=== PATIENT | female | born 1960 | race Caucasian/White ===

== ENCOUNTER 2020-07-27 18:30 | Inpatient (IN) | payer MEDICARE, MEDICAID, SELFPAY ==
[2020-07-27 19:24] VITALS: BMI 33.6
[2020-07-27 19:33] VITALS: BP 130/75; PULSE 98; RESP 18; TEMP 36.8; O2SAT 98
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
[2020-07-27] MEDS: traZODone HCL 100 MG TABLET PO (22:30)
[2020-07-27] MEDS: Gabapentin 600 MG TABLET PO (22:30)
[2020-07-27] MEDS: clonazePAM 1 MG TABLET PO (22:31)
[2020-07-27] MEDS: Acetaminophen 325 MG TABLET 650 MG PO (22:37)
[2020-07-27 22:42] VITALS: BP 115/64; PULSE 99; TEMP 36.6; O2SAT 98
[2020-07-28 06:00] VITALS: BP 122/57; PULSE 97; RESP 20; TEMP 36.6; O2SAT 94
[2020-07-28 07:15] LABS: MANUAL DIFF FLAG NO
[2020-07-28 07:23] LABS: Basophils Percent Auto 0.4 % (0-2); Eosinophils Absolute Auto 0.1 X10*3/uL (0.0-0.4); Eosinophils Percent Auto 1.1 % (0-4); Hematocrit 44.6 % (37-47); Imm Gran Abs Auto 0.05 X10*3/uL (0.00-0.03); Imm Gran Pct Auto 0.5 % (0.0-0.4); Lymphocytes Absolute Auto 1.8 X10*3/uL (1.2-4.9); Lymphocytes Percent Auto 16.8 % (20-40); Mean Corpuscular HGB Conc 33.6 g/dl (31.0-35.0); Mean Corpuscular Hemoglobin 31.6 pg (27.0-33.0); Mean Corpuscular Volume 94.1 fL (80-98); Mean Platelet Volume 8.8 fL (9.4-12.3); Monocytes Absolute Auto 0.9 X10*3/uL (0.1-1.2); Monocytes Percent Auto 8.6 % (2-11); Neutrophils Absolute Auto 7.6 X10*3/uL (2.0-8.3); Neutrophils Percent Auto 72.6 % (45-73); Platelet Count 294 X10*3/uL (160-400); Red Blood Count 4.74 X10*6/uL (4.20-5.50); Red Cell Distribution Width 13.8 % (11.0-16.0); White Blood Count 10.5 X10*3/uL (4.8-10.8)
[2020-07-28 07:53] LABS: Alanine Aminotransferase 17 U/L (0-31); Albumin Level 3.9 g/dL (3.5-5.0); Alkaline Phosphatase 79 U/L (39-117); Anion Gap 12 (12-20); Aspartate Amino Transferase 17 U/L (5-31); Bilirubin Total 0.4 mg/dL (0.0-1.0); Blood Urea Nitrogen 14 mg/dL (9-16); Calcium 8.9 mg/dL (8.4-10.2); Carbon Dioxide 30 mmol/L (22-29); Chloride 102 mmol/L (96-108); Cholesterol 234 mg/dL; Creatinine Clr Calc Pharmacy 88.9; Estimated Glomerular Filt Rate > 60; Glucose Fasting 118 mg/dL (60-99); HDL Cholesterol 25 mg/dL; LDL Cholesterol Calculated 148 mg/dl; Potassium 3.4 mmol/L (3.3-5.1); Sodium 141 mmol/L (135-145); Total Protein 6.4 g/dL (6.5-8.0); Triglycerides 309 mg/dL
[2020-07-28 08:39] LABS: Estimated Average Glucose 123 mg/dL; Hemoglobin A1c % 5.9 %
[2020-07-28] MEDS: Acetaminophen 325 MG TABLET 650 MG PO ×2 (09:27→17:23)
[2020-07-28] MEDS: clonazePAM 1 MG TABLET PO (09:30)
[2020-07-28] MEDS: Sertraline HCL 50 MG TABLET 150 MG PO (09:31)
[2020-07-28] MEDS: Nicotine Polacrilex 2 MG GUM BUCCAL (10:45)
[2020-07-28] MEDS: Lidocaine 4 % Patch ADH..PATCH 1 PATCH TRANSDERMA (11:00)
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
[2020-07-28] MEDS: diazePAM 2 MG TABLET PO (14:40)
[2020-07-28 18:00] VITALS: BP 128/63; PULSE 96; RESP 17; TEMP 36.4; O2SAT 96
[2020-07-28] MEDS: traMADoL HCL 50 MG TABLET PO (18:45)
[2020-07-28] MEDS: LORazepam 0.5 MG TABLET PO (19:03)
[2020-07-28] MEDS: Gabapentin 600 MG TABLET PO (22:04)
[2020-07-28] MEDS: diazePAM 5 MG TABLET PO (22:04)
[2020-07-28] MEDS: traZODone HCL 100 MG TABLET PO (22:04)
[2020-07-28] MEDS: Albuterol Sulfate 90 MCG 8 GM INHALER 2 PUFF INHALE (23:01)
--- NOTE | 2020-07-29 02:20 | CONS_ITS ---
DATE OF SERVICE: 07/28/2020 CONSULTING PHYSICIAN: Dr. Tony Finley. REASON FOR CONSULTATION: Medical management for chronic back pain, fibromyalgia, and cough. HISTORY OF PRESENTING ILLNESS: This is a 59-year-old female patient, who was referred from [facility] Emergency Room for worsening depressive symptoms and anxiety due to multiple stressors. The patient at the present time is complaining of lower back pain with prior history of T12 compression fracture sustained in October of 2019 for which she has been taking Ultram twice daily. The patient is also asking for Neurontin that she has been taking 600 mg t.i.d. for fibromyalgia. According to her, she has dry cough for several days associated with postnasal drip. She was treated in the past with prednisone that she feels exacerbated her anxiety. She was also given albuterol inhaler that was helping with her dry cough. The patient denies any recent travel. She denies any new pets. She has a dog at home that she is unable to take care of. She denies fever, chills, or other medical issues. PAST MEDICAL HISTORY: Significant for, 1. Fibromyalgia. 2. History of chronic back pain with T12 compression fracture. 3. History of PCOS. 4. History of depression, anxiety. MEDICATIONS: On admission as per [facility] records, Tylenol 650 every 4 hours; albuterol/ipratropium 1 puff inhaler 4 times a day; clonazepam 1 tablet by mouth b.i.d.; diazepam 5 mg daily; famotidine 20 mg twice daily; gabapentin 600 mg 2 capsules by mouth 4 times a day, increase by 300 mg per week up to 200 mg per day; ibuprofen 600 mg daily; oxycodone 1 tablet every 6 hours as needed; Zoloft 150 mg at bedtime; trazodone 3 tablets by mouth daily at bedtime. SOCIAL HISTORY: The patient smokes cigar regularly. She is currently unemployed, but previously she was a crm business analyst for special need. She denies alcohol use or substance abuse. FAMILY HISTORY: Grandmother of heart disease in age 70s. Mother due to renal failure and diabetes. Father is also and had diabetes mellitus. ALLERGIES: SHE IS ALLERGIC TO BUPROPION THAT CAUSES A RASH. 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 CVS: No chest pain or palpitation. RESPIRATORY: She complains of dry cough and postnasal drip. : No urinary symptoms of urgency and frequency. MUSCULOSKELETAL: She complains of back pain started from the thoracic spine going all the way down to lower back, buttocks, and back of the thigh. The rest of all other systems are reviewed and negative. PHYSICAL EXAMINATION: GENERAL: The patient is resting comfortably, does not appear to be in acute distress. Appears anxious. VITAL SIGNS: BP 122/57, pulse of 97, respiratory rate 20, temp 97.8, O2 saturation 94% on room air. HEENT: Pupils equal, round, and reactive to light and accommodation. NECK: Supple. No JVD. LUNGS: Clear to auscultation bilaterally. No wheeze or rhonchi noted. No respiratory distress. ABDOMEN: Obese, soft, nontender. Bowel sounds are audible. CARDIOVASCULAR: Regular rate and rhythm. No murmurs, regurg, or gallop. EXTREMITIES: Without clubbing, cyanosis, or edema. Lower back examination reveals no tenderness on low vertebral spine. No paravertebral muscle spasm, redness, or swelling noted. NEURO: Nonfocal. LABORATORY DATA: WBC 10.5, hemoglobin 15, hematocrit of 44.7, and a platelet count of 294. Sodium 141, potassium 3.4, chloride 102, bicarb 30, BUN 14, and a creatinine of 0.7. ASSESSMENT AND PLAN: A 59-year-old female with history of anxiety, depression, and cigar use, was sent to [place] [facility] from [facility] due to worsening anxiety and depression. 1. Cough/postnasal drip. Likely related to seasonal allergies. No underlying history of asthma. As per the patient, her symptoms improved with use of albuterol. Therefore, we will place her on p.r.n. albuterol inhaler and add p.r.n. Claritin. 2. Chronic back pain. We will resume Ultram as needed for pain control. 3. History of fibromyalgia. We will resume gabapentin 600 mg t.i.d. 4. In regard to anxiety, depression, further management as per Psychiatry. 5. Deep vein thrombosis prophylaxis. Recommend early ambulation. Thank you for allowing us to participate in the care of this patient. MD JHONATAN Bautista/CHUY / [id number] MTDD
[2020-07-29 06:00] VITALS: BP 116/58; PULSE 95; RESP 18; TEMP 36.6; O2SAT 94
[2020-07-29] MEDS: diazePAM 2 MG TABLET PO ×2 (08:38→14:07)
[2020-07-29] MEDS: Gabapentin 600 MG TABLET PO ×3 (08:38→22:16)
[2020-07-29] MEDS: Sertraline HCL 50 MG TABLET 200 MG PO (08:40)
[2020-07-29] MEDS: Acetaminophen 325 MG TABLET 650 MG PO ×2 (10:08→22:16)
--- NOTE | 2020-07-29 10:27 | HO.PSYCHPN ---
Subjective Subjective Date of Service: 07/29/20 Reason For Visit: PTSD Interim History: The patient remains worried that she could have withdrawal symptoms since we changed the benzodiazepines. Still overwhelmed with her stressors and dysphoric. No side effects with the increase of Zoloft Medication Compliance: Yes Side effects from medications: No Attending Groups: No Mental Status Exam Mental Status Exam Patient Appearance: Disheveled Patient Orientation: Person, Place, Time and Situation Level of Consciousness: Awake Patient Behavior: Anxious Mood Description: Calm Affect Description: Constricted and Sad Patient Cognition Impaired: No Ability to Follow Directions: Good Speech Pattern: Clear Memory Description: Intact Hallucinations: None Delusions: Not Present Thought Process: Goal Oriented Thought Content: positive for Intact Depressive Symptoms: Increased Anxiety, Insomnia and Feelings of Guilt Judgement: Fair Diagnostics Vital Signs (24Hr): Vital Signs - 24 hr 07/28/20 18:00 07/29/20 06:00 Temperature 97.5 F 98 F Pulse Rate 96 95 Respiratory Rate 17 18 Blood Pressure 128/63 116/58 L Pulse Oximetry 96 94 Body Mass Index 33.6 Labs Results: 07/28/20 07:00 07/28/20 07:00 Labs: Laboratory Results - last 48 hr 07/28/20 07/28/20 07/28/20 07:00 07:00 07:00 WBC 10.5 RBC 4.74 Hgb 15.0 Hct 44.6 MCV 94.1 MCH 31.6 MCHC 33.6 RDW 13.8 Plt Count 294 MPV 8.8 L Immature Gran % (Auto) 0.5 H Neut % (Auto) 72.6 Lymph % (Auto) 16.8 L [place] % (Auto) 8.6 Eos % (Auto) 1.1 Baso % (Auto) 0.4 Lymph # (Auto) 1.8 [place] # (Auto) 0.9 Eos # (Auto) 0.1 Baso # (Auto) 0.0 Abs Immat Gran (auto) 0.05 H Absolute Neuts (auto) 7.6 Absolute Nucleated RBC 0.000 Nucleated RBC % (auto) 0.0 Sodium 141 Potassium 3.4 Chloride 102 Carbon Dioxide 30 H Anion Gap 12 BUN 14 Creatinine 0.70 Estim Creat Clear Calc 88.9 Estimated GFR > 60 Fasting Glucose 118 H Estimat Average Glucose 123 Hemoglobin A1c % 5.9 Calcium 8.9 Total Bilirubin 0.4 AST 17 ALT 17 Alkaline Phosphatase 79 Total Protein 6.4 L Albumin 3.9 Triglycerides 309 Cholesterol 234 LDL Cholesterol, Calc 148 HDL Cholesterol 25 Medications Medications Current Medications Generic Name Dose Route Start Last Admin Trade Name Sincereq PRN Reason Stop Dose Admin Acetaminophen 650 mg 07/27/20 19:38 07/29/20 10:08 Acetaminophen 325 Mg Tablet PO 650 mg Q6H PRN Administration Headache/Pain Mild Scale (1-3) Al Hydroxide/Mg Hydroxide 30 ml 07/27/20 19:38 Magnesium Hydrox/Alum Hydrox 30 Ml Oral.Susp PO Q6H PRN Heartburn/Nausea Albuterol Sulfate 2 puff 07/28/20 16:30 07/29/20 05:35 Albuterol Sulfate 90 Mcg 8 Gm Inhaler INHALE Not Given Q6H DARIEN Diazepam 5 mg 07/28/20 21:00 07/28/20 22:04 Diazepam 5 Mg Tablet PO 5 mg BEDTIME DARIEN Administration Diazepam 2 mg 07/28/20 13:30 07/29/20 08:38 Diazepam 2 Mg Tablet PO 2 mg BID@0830,1330 DARIEN Administration Gabapentin 600 mg 07/28/20 21:00 07/29/20 08:38 Gabapentin 600 Mg Tablet PO 600 mg TID DARIEN Administration Hydroxyzine HCl 25 mg 07/27/20 19:38 Hydroxyzine Hcl 25 Mg Tablet PO BEDTIME PRN Anxiety Lidocaine 1 patch 07/28/20 09:00 07/28/20 11:00 Lidocaine 4 % Patch Adh..Patch TRANSDERMA 1 patch DAILY DARIEN Administration Protocol Loratadine 10 mg 07/28/20 16:24 Loratadine 10 Mg Tablet PO DAILY PRN allergy Lorazepam 0.5 mg 07/27/20 19:44 07/28/20 19:03 Lorazepam 0.5 Mg Tablet PO 0.5 mg Q4H PRN Administration Anxiety Magnesium Hydroxide 30 ml 07/27/20 19:38 Milk Of Magnesia 30 Ml Oral.Susp PO DAILY PRN Constipation Nicotine 14 mg 07/30/20 09:00 Nicotine 14 Mg Patch.Td24 TRANSDERMA DAILY DARIEN Nicotine Polacrilex 2 mg 07/27/20 19:38 07/28/20 10:45 Nicotine Polacrilex 2 Mg Gum BUCCAL 2 mg Q2H PRN Administration Nicotine Cravings Sertraline HCl 200 mg 07/29/20 09:00 07/29/20 08:40 Sertraline Hcl 50 Mg Tablet PO 200 mg DAILY DARIEN Administration Tramadol HCl 50 mg 07/28/20 16:13 07/28/20 18:45 Tramadol Hcl 50 Mg Tablet PO 50 mg Q8H PRN Administration Pain, Severe (Pain Scale 7-10) Trazodone HCl 100 mg 07/27/20 22:00 07/28/20 22:04 Trazodone Hcl 100 Mg Tablet PO 100 mg BEDTIME DARIEN Administration Allergies Allergies Allergy/AdvReac Type Severity Reaction Status Date / Time bupropion [From Wellbutrin] Allergy Rash Verified 07/27/20 19:28 Assessment & Plan Assessment & Plan (1) Major depressive disorder: Qualifiers: Major depression recurrence: recurrent Active/Remission status: currently active Major depression episode severity: severe Psychotic features: without psychotic features Qualified Code(s): F33.2 - Major depressive disorder, recurrent severe without psychotic features Status: Acute Code(s): F32.9 - Major depressive disorder, single episode, unspecified Assessment and Plan: Middle age female with a history of MDD and PTSD referred for exacerbation of depressive symptoms in the context of several psychosocial stressors such as lack of access to mental health services, financial constraints and the anniversary of the of her daughter. Plan: 1. Keep Zoloft 200 mg po qam 2. Continue Valium 2 mg po bid and 5 mg p qhs. 3. Nicotine patch 4. Gather collateral information (2) Post traumatic stress disorder (PTSD): Status: Acute Code(s): F43.10 - Post-traumatic stress disorder, unspecified Greater than 50% of the session was spent on counseling and/or coordination of care Reason for contiued inpatient stay Substantial Risk for: harm to self, stable for discharge and med/psych decompensation
[2020-07-29] MEDS: Albuterol Sulfate 90 MCG 8 GM INHALER 2 PUFF INHALE ×3 (11:58→22:13)
[2020-07-29] MEDS: Lidocaine 4 % Patch ADH..PATCH 1 PATCH TRANSDERMA (15:12)
[2020-07-29] MEDS: Nicotine 14 MG PATCH.TD24 TRANSDERMA (16:15)
[2020-07-29 18:00] VITALS: BP 123/72; PULSE 105; RESP 18; O2SAT 93
[2020-07-29] MEDS: traZODone HCL 100 MG TABLET PO (22:16)
[2020-07-29] MEDS: diazePAM 5 MG TABLET PO (22:16)
--- NOTE | 2020-07-29 22:31 | PC.NURSE ---
lidocaine and smoking patch removed at this time
[2020-07-30 08:58] VITALS: BP 127/73; RESP 18; O2SAT 94
[2020-07-30] MEDS: Nicotine 14 MG PATCH.TD24 TRANSDERMA (09:01)
[2020-07-30] MEDS: diazePAM 2 MG TABLET PO ×2 (09:01→14:25)
[2020-07-30] MEDS: Gabapentin 600 MG TABLET PO ×3 (09:01→22:46)
[2020-07-30] MEDS: Lidocaine 4 % Patch ADH..PATCH 1 PATCH TRANSDERMA (09:03)
[2020-07-30] MEDS: traMADoL HCL 50 MG TABLET PO (09:50)
[2020-07-30] MEDS: Sertraline HCL 50 MG TABLET 200 MG PO (09:51)
[2020-07-30] MEDS: Albuterol Sulfate 90 MCG 8 GM INHALER 2 PUFF INHALE ×3 (10:02→23:07)
[2020-07-30] MEDS: LORazepam 0.5 MG TABLET PO (11:37)
--- NOTE | 2020-07-30 21:22 | P.PNPSI_ITS ---
Subjective Subjective Date of Service: 07/30/20 Reason For Visit: PTSD Subjective Notes: Conditional Voluntary Healthcare Proxy: No Guardianship: No Medical Problems Affecting Mental Status: Yes Interim History: Reports she is working on sx mgt. Son has visited today. Discussed loss of daughter and recent anniversary of her birthday. Thinking about precipitants to current sx increase and need for admission. Believes GI prep may have altered medication levels and left her more vulnerable. Discussed preparation precautions as she is scheduled for follow up procedures in December 2020. Medication Compliance: Yes Side effects from medications: No Attending Groups: Yes Review of Systems Musculoskeletal: Reports back pain Psychiatric: Reports depression Mental Status Exam Mental Status Exam Patient Appearance: Appropriate Patient Orientation: Person, Place and Time Level of Consciousness: Alert Patient Behavior: Appropriate and Talkative Mood Description: Depressed Affect Description: Flat Patient Cognition Impaired: No Ability to Follow Directions: Good Speech Pattern: Spontaneous Speech Memory Description: Intact Hallucinations: None Delusions: Not Present Thought Process: Intact Thought Content: positive for Intact Depressive Symptoms: Increased Anxiety Judgement: Fair Diagnostics Vital Signs (24Hr): Vital Signs - 24 hr 07/30/20 08:58 Respiratory Rate 18 Blood Pressure 127/73 Pulse Oximetry 94 Body Mass Index 33.6 Labs Results: 07/28/20 07:00 07/28/20 07:00 Medications Medications Current Medications Generic Name Dose Route Start Last Admin Trade Name Sincereq PRN Reason Stop Dose Admin Acetaminophen 650 mg 07/27/20 19:38 07/29/20 22:16 Acetaminophen 325 Mg Tablet PO 650 mg Q6H PRN Administration Headache/Pain Mild Scale (1-3) Al Hydroxide/Mg Hydroxide 30 ml 07/27/20 19:38 Magnesium Hydrox/Alum Hydrox 30 Ml Oral.Susp PO Q6H PRN Heartburn/Nausea Albuterol Sulfate 2 puff 07/28/20 16:30 07/30/20 17:26 Albuterol Sulfate 90 Mcg 8 Gm Inhaler INHALE 2 puff Q6H DARIEN Administration Diazepam 5 mg 07/28/20 21:00 07/29/20 22:16 Diazepam 5 Mg Tablet PO 5 mg BEDTIME DARIEN Administration Diazepam 2 mg 07/28/20 13:30 07/30/20 14:25 Diazepam 2 Mg Tablet PO 2 mg BID@0830,1330 DARIEN Administration Gabapentin 600 mg 07/28/20 21:00 07/30/20 14:25 Gabapentin 600 Mg Tablet PO 600 mg TID DARIEN Administration Hydroxyzine HCl 25 mg 07/27/20 19:38 Hydroxyzine Hcl 25 Mg Tablet PO BEDTIME PRN Anxiety Lidocaine 1 patch 07/28/20 09:00 07/30/20 09:03 Lidocaine 4 % Patch Adh..Patch TRANSDERMA 1 patch DAILY DARIEN Administration Protocol Loratadine 10 mg 07/28/20 16:24 Loratadine 10 Mg Tablet PO DAILY PRN allergy Lorazepam 0.5 mg 07/27/20 19:44 07/30/20 11:37 Lorazepam 0.5 Mg Tablet PO 0.5 mg Q4H PRN Administration Anxiety Magnesium Hydroxide 30 ml 07/27/20 19:38 Milk Of Magnesia 30 Ml Oral.Susp PO DAILY PRN Constipation Nicotine 14 mg 07/29/20 16:15 07/30/20 09:01 Nicotine 14 Mg Patch.Td24 TRANSDERMA 14 mg DAILY DARIEN Administration Nicotine Polacrilex 2 mg 07/27/20 19:38 07/28/20 10:45 Nicotine Polacrilex 2 Mg Gum BUCCAL 2 mg Q2H PRN Administration Nicotine Cravings Sertraline HCl 200 mg 07/29/20 09:00 07/30/20 09:51 Sertraline Hcl 50 Mg Tablet PO 200 mg DAILY DARIEN Administration Tramadol HCl 50 mg 07/28/20 16:13 07/30/20 09:50 Tramadol Hcl 50 Mg Tablet PO 50 mg Q8H PRN Administration Pain, Severe (Pain Scale 7-10) Trazodone HCl 100 mg 07/27/20 22:00 07/29/20 22:16 Trazodone Hcl 100 Mg Tablet PO 100 mg BEDTIME DARIEN Administration Allergies Allergies Allergy/AdvReac Type Severity Reaction Status Date / Time bupropion [From Wellbutrin] Allergy Rash Verified 07/27/20 19:28 Assessment & Plan Assessment & Plan (1) Major depressive disorder: Qualifiers: Active/Remission status: currently active Major depression episode severity: severe Major depression recurrence: recurrent Psychotic features: without psychotic features Qualified Code(s): F33.2 - Major depressive disorder, recurrent severe without psychotic features Status: Acute Code(s): F32.9 - Major depressive disorder, single episode, unspecified Assessment and Plan: Middle age female with a history of MDD and PTSD referred for exacer bation of depressive symptoms in the context of several psychosocial stressors such as lack of access to mental health services, financial constraints and the anniversary of the of her daughter. Plan: 1. Keep Zoloft 200 mg po qam 2. Continue Valium 2 mg po bid and 5 mg p qhs. 3. Nicotine patch 4. Gather collateral information (2) Post traumatic stress disorder (PTSD): Status: Acute Code(s): F43.10 - Post-traumatic stress disorder, unspecified Greater than 50% of the session was spent on counseling and/or coordination of care Reason for contiued inpatient stay Substantial Risk for: harm to self, inability to function, rapid decompensation and med/psych decompensation
[2020-07-30 22:00] VITALS: BP 116/66; PULSE 100; TEMP 37.1; O2SAT 95
[2020-07-30] MEDS: traZODone HCL 100 MG TABLET PO (22:46)
[2020-07-30] MEDS: Acetaminophen 325 MG TABLET 650 MG PO (22:47)
[2020-07-30] MEDS: diazePAM 5 MG TABLET PO (22:47)
[2020-07-31 08:00] VITALS: BP 151/89; PULSE 102; RESP 18; TEMP 37; O2SAT 91
[2020-07-31] MEDS: diazePAM 2 MG TABLET PO ×2 (08:39→14:30)
[2020-07-31] MEDS: Nicotine 14 MG PATCH.TD24 TRANSDERMA (08:39)
[2020-07-31] MEDS: Albuterol Sulfate 90 MCG 8 GM INHALER 2 PUFF INHALE ×4 (08:42→22:03)
[2020-07-31] MEDS: Sertraline HCL 50 MG TABLET 200 MG PO (09:22)
[2020-07-31] MEDS: Lidocaine 4 % Patch ADH..PATCH 1 PATCH TRANSDERMA (09:22)
[2020-07-31] MEDS: Gabapentin 600 MG TABLET PO ×3 (09:22→21:53)
[2020-07-31] MEDS: Milk of Magnesia 30 ML ORAL.SUSP PO (10:44)
[2020-07-31] MEDS: LORazepam 0.5 MG TABLET PO (10:47)
[2020-07-31] MEDS: Magnesium Hydrox/Alum Hydrox 30 ML ORAL.SUSP PO (17:23)
[2020-07-31 20:22] VITALS: BP 130/83; PULSE 100; TEMP 36.4; O2SAT 94
[2020-07-31] MEDS: traMADoL HCL 50 MG TABLET PO (20:50)
--- NOTE | 2020-07-31 21:39 | P.PNPSI_ITS ---
Subjective Subjective Date of Service: 07/31/20 Reason For Visit: PTSD Subjective Notes: Conditional Voluntary Healthcare Proxy: No Guardianship: No Medical Problems Affecting Mental Status: No Interim History: Visable and active in milieu with team and peers. Talking of her loss. Able to sleep per team report. Medication Compliance: Yes Side effects from medications: No Attending Groups: Yes Review of Systems Psychiatric: Reports anxiety and Reports depression Mental Status Exam Mental Status Exam Patient Appearance: Appropriate Patient Orientation: Person, Place, Time and Situation Level of Consciousness: Alert Patient Behavior: Appropriate, Talkative and Cooperative Mood Description: Depressed Affect Description: Flat Patient Cognition Impaired: No Ability to Follow Directions: Good Speech Pattern: Spontaneous Speech Memory Description: Intact Hallucinations: None Delusions: Not Present Thought Process: Intact Thought Content: positive for Intact Depressive Symptoms: Increased Anxiety, Hopelessness, Unhappiness, Increased Fatigue and Difficulty Concentrating Judgement: Good Diagnostics Vital Signs (24Hr): Vital Signs - 24 hr 07/30/20 22:00 07/31/20 08:00 07/31/20 20:22 Temperature 98.7 F 98.6 F 97.6 F Pulse Rate 100 102 H 100 Respiratory Rate 18 Blood Pressure 116/66 151/89 H 130/83 Pulse Oximetry 95 91 L 94 Body Mass Index 33.6 Labs Results: 07/28/20 07:00 07/28/20 07:00 Medications Medications Current Medications Generic Name Dose Route Start Last Admin Trade Name Freq PRN Reason Stop Dose Admin Acetaminophen 650 mg 07/27/20 19:38 07/30/20 22:47 Acetaminophen 325 Mg Tablet PO 650 mg Q6H PRN Administration Headache/Pain Mild Scale (1-3) Al Hydroxide/Mg Hydroxide 30 ml 07/27/20 19:38 07/31/20 17:23 Magnesium Hydrox/Alum Hydrox 30 Ml Oral.Susp PO 30 ml Q6H PRN Administration Heartburn/Nausea Albuterol Sulfate 2 puff 07/28/20 16:30 07/31/20 17:18 Albuterol Sulfate 90 Mcg 8 Gm Inhaler INHALE 2 puff Q6H DARIEN Administration Diazepam 5 mg 07/28/20 21:00 07/30/20 22:47 Diazepam 5 Mg Tablet PO 5 mg BEDTIME DARIEN Administration Diazepam 2 mg 07/28/20 13:30 07/31/20 14:30 Diazepam 2 Mg Tablet PO 2 mg BID@0830,1330 DARIEN Administration Gabapentin 600 mg 07/28/20 21:00 07/31/20 14:31 Gabapentin 600 Mg Tablet PO 600 mg TID DARIEN Administration Hydroxyzine HCl 25 mg 07/27/20 19:38 Hydroxyzine Hcl 25 Mg Tablet PO BEDTIME PRN Anxiety Lidocaine 1 patch 07/28/20 09:00 07/31/20 09:22 Lidocaine 4 % Patch Adh..Patch TRANSDERMA 1 patch DAILY DARIEN Administration Protocol Loratadine 10 mg 07/28/20 16:24 Loratadine 10 Mg Tablet PO DAILY PRN allergy Lorazepam 0.5 mg 07/27/20 19:44 07/31/20 10:47 Lorazepam 0.5 Mg Tablet PO 0.5 mg Q4H PRN Administration Anxiety Magnesium Hydroxide 30 ml 07/27/20 19:38 07/31/20 10:44 Milk Of Magnesia 30 Ml Oral.Susp PO 30 ml DAILY PRN Administration Constipation Nicotine 14 mg 07/29/20 16:15 07/31/20 08:39 Nicotine 14 Mg Patch.Td24 TRANSDERMA 14 mg DAILY DARIEN Administration Nicotine Polacrilex 2 mg 07/27/20 19:38 07/28/20 10:45 Nicotine Polacrilex 2 Mg Gum BUCCAL 2 mg Q2H PRN Administration Nicotine Cravings Sertraline HCl 200 mg 07/29/20 09:00 07/31/20 09:22 Sertraline Hcl 50 Mg Tablet PO 200 mg DAILY DARIEN Administration Tramadol HCl 50 mg 07/28/20 16:13 07/31/20 20:50 Tramadol Hcl 50 Mg Tablet PO 50 mg Q8H PRN Administration Pain, Severe (Pain Scale 7-10) Trazodone HCl 100 mg 07/27/20 22:00 07/30/20 22:46 Trazodone Hcl 100 Mg Tablet PO 100 mg BEDTIME DARIEN Administration Allergies Allergies Allergy/AdvReac Type Severity Reaction Status Date / Time bupropion [From Wellbutrin] Allergy Rash Verified 07/27/20 19:28 Assessment & Plan Assessment & Plan (1) Major depressive disorder: Qualifiers: Major depression recurrence: recurrent Active/Remission status: currently active Major depression episode severity: severe Psychotic features: without psychotic features Qualified Code(s): F33.2 - Major depressive disor rosalia, recurrent severe without psychotic features Status: Acute Code(s): F32.9 - Major depressive disorder, single episode, unspecified Assessment and Plan: Middle age female with a history of MDD and PTSD referred for exacerbation of depressive symptoms in the context of several psychosocial stressors such as lack of access to mental health services, financial constraints and the anniversary of the of her daughter. Plan: 1. Keep Zoloft 200 mg po qam 2. Continue Valium 2 mg po bid and 5 mg p qhs. 3. Nicotine patch 4. Gather collateral information (2) Post traumatic stress disorder (PTSD): Status: Acute Code(s): F43.10 - Post-traumatic stress disorder, unspecified Greater than 50% of the session was spent on counseling and/or coordination of care Patient educated on: therapeutic strategies Informed Consent: understands Reason for contiued inpatient stay Substantial Risk for: harm to self, inability to function and rapid decompensation
[2020-07-31] MEDS: diazePAM 5 MG TABLET PO (21:53)
[2020-07-31] MEDS: traZODone HCL 100 MG TABLET PO (21:53)
--- NOTE | 2020-08-01 08:39 | HO.PSYCHPN ---
Subjective Subjective Date of Service: 08/01/20 Reason For Visit: PTSD Interim History: The patient remains anxious and dysphoric but able to be visible in the unit. We discussed options and she agreed to change Valium to 5 mg BID Mental Status Exam Mental Status Exam Patient Appearance: Disheveled Patient Orientation: Person, Place, Time and Situation Level of Consciousness: Appropriate Patient Behavior: Guarded Mood Description: Constricted Affect Description: Depressed Patient Cognition Impaired: No Ability to Follow Directions: Good Speech Pattern: Clear Memory Description: Intact Hallucinations: None Delusions: Not Present Thought Process: Linear Thought Content: positive for Obsessional Thoughts Depressive Symptoms: Increased Anxiety Judgement: Fair Diagnostics Vital Signs (24Hr): Vital Signs - 24 hr 07/31/20 20:22 Temperature 97.6 F Pulse Rate 100 Blood Pressure 130/83 Pulse Oximetry 94 Body Mass Index 33.6 Labs Results: 07/28/20 07:00 07/28/20 07:00 Medications Medications Current Medications Generic Name Dose Route Start Last Admin Trade Name Freq PRN Reason Stop Dose Admin Acetaminophen 650 mg 07/27/20 19:38 07/30/20 22:47 Acetaminophen 325 Mg Tablet PO 650 mg Q6H PRN Administration Headache/Pain Mild Scale (1-3) Al Hydroxide/Mg Hydroxide 30 ml 07/27/20 19:38 07/31/20 17:23 Magnesium Hydrox/Alum Hydrox 30 Ml Oral.Susp PO 30 ml Q6H PRN Administration Heartburn/Nausea Albuterol Sulfate 2 puff 07/28/20 16:30 08/01/20 04:22 Albuterol Sulfate 90 Mcg 8 Gm Inhaler INHALE Not Given Q6H DARIEN Diazepam 5 mg 07/28/20 21:00 07/31/20 21:53 Diazepam 5 Mg Tablet PO 5 mg BEDTIME DARIEN Administration Diazepam 2 mg 07/28/20 13:30 07/31/20 14:30 Diazepam 2 Mg Tablet PO 2 mg BID@0830,1330 DARIEN Administration Gabapentin 600 mg 07/28/20 21:00 07/31/20 21:53 Gabapentin 600 Mg Tablet PO 600 mg TID DARIEN Administration Hydroxyzine HCl 25 mg 07/27/20 19:38 Hydroxyzine Hcl 25 Mg Tablet PO BEDTIME PRN Anxiety Lidocaine 1 patch 07/28/20 09:00 07/31/20 09:22 Lidocaine 4 % Patch Adh..Patch TRANSDERMA 1 patch DAILY DARIEN Administration Protocol Loratadine 10 mg 07/28/20 16:24 Loratadine 10 Mg Tablet PO DAILY PRN allergy Lorazepam 0.5 mg 07/27/20 19:44 07/31/20 10:47 Lorazepam 0.5 Mg Tablet PO 0.5 mg Q4H PRN Administration Anxiety Magnesium Hydroxide 30 ml 07/27/20 19:38 07/31/20 10:44 Milk Of Magnesia 30 Ml Oral.Susp PO 30 ml DAILY PRN Administration Constipation Nicotine 14 mg 07/29/20 16:15 07/31/20 08:39 Nicotine 14 Mg Patch.Td24 TRANSDERMA 14 mg DAILY DARIEN Administration Nicotine Polacrilex 2 mg 07/27/20 19:38 07/28/20 10:45 Nicotine Polacrilex 2 Mg Gum BUCCAL 2 mg Q2H PRN Administration Nicotine Cravings Ondansetron HCl 4 mg 07/31/20 23:22 07/31/20 23:39 Ondansetron Odt 4 Mg Tab.Rapdis TRANSLINGU 4 mg Q6H PRN Administration Nausea Sertraline HCl 200 mg 07/29/20 09:00 07/31/20 09:22 Sertraline Hcl 50 Mg Tablet PO 200 mg DAILY DARIEN Administration Tramadol HCl 50 mg 07/28/20 16:13 07/31/20 20:50 Tramadol Hcl 50 Mg Tablet PO 50 mg Q8H PRN Administration Pain, Severe (Pain Scale 7-10) Trazodone HCl 100 mg 07/27/20 22:00 07/31/20 21:53 Trazodone Hcl 100 Mg Tablet PO 100 mg BEDTIME DARIEN Administration Allergies Allergies Allergy/AdvReac Type Severity Reaction Status Date / Time bupropion [From Wellbutrin] Allergy Rash Verified 07/27/20 19:28 Assessment & Plan Assessment & Plan (1) Major depressive disorder: Qualifiers: Active/Remission status: currently active Major depression episode severity: severe Major depression recurrence: recurrent Psychotic features: without psychotic features Qualified Code(s): F33.2 - Major depressive disorder, recurrent severe without psychotic features Status: Acute Code(s): F32.9 - Major depressive disorder, single episode, unspecified Assessment and Plan: Middle age female with a history of MDD and PTSD referred for exacerbation of depressive symptoms in the context of several psychosocial stressors such as lack of access to mental health services, financial constraints and the anniversary of the of her daughter. Plan: 1. Keep Zoloft 200 mg po qam 2. Change Valium 5 mg po bid. 3. Nicotine patch 4. Gather collateral information (2) Post traumatic stress disorder (PTSD): Status: Acute Code(s): F43.10 - Post-traumatic stress disorder, unspecified Greater than 50% of the session was spent on counseling and/or coordination of care Reason for contiued inpatient stay Substantial Risk for: inability to function, rapid decompensation and med/psych decompensation
[2020-08-01 09:31] VITALS: BP 134/80; PULSE 104; RESP 19; TEMP 36.7; O2SAT 91
[2020-08-01] MEDS: Albuterol Sulfate 90 MCG 8 GM INHALER 2 PUFF INHALE ×3 (09:38→21:55)
[2020-08-01] MEDS: diazePAM 2 MG TABLET PO ×2 (09:38→15:02)
[2020-08-01] MEDS: Sertraline HCL 50 MG TABLET 200 MG PO (09:38)
[2020-08-01] MEDS: Gabapentin 600 MG TABLET PO ×3 (09:38→21:53)
[2020-08-01] MEDS: Nicotine 14 MG PATCH.TD24 TRANSDERMA (09:41)
[2020-08-01] MEDS: Acetaminophen 325 MG TABLET 650 MG PO (09:45)
[2020-08-01 18:00] VITALS: BP 112/62; PULSE 81; RESP 16; TEMP 36.8; O2SAT 91
[2020-08-01] MEDS: diazePAM 5 MG TABLET PO (21:53)
[2020-08-01] MEDS: traZODone HCL 100 MG TABLET PO (21:53)
[2020-08-02] MEDS: Sertraline HCL 50 MG TABLET 200 MG PO (09:16)
[2020-08-02] MEDS: Gabapentin 600 MG TABLET PO ×3 (09:16→22:26)
[2020-08-02] MEDS: diazePAM 5 MG TABLET PO ×2 (09:16→22:26)
[2020-08-02] MEDS: Nicotine 14 MG PATCH.TD24 TRANSDERMA (09:17)
[2020-08-02 10:55] VITALS: BP 121/65; PULSE 107; O2SAT 92
[2020-08-02] MEDS: Albuterol Sulfate 90 MCG 8 GM INHALER 2 PUFF INHALE ×3 (12:19→22:29)
[2020-08-02] MEDS: Acetaminophen 325 MG TABLET 650 MG PO (12:56)
--- NOTE | 2020-08-02 13:33 | HO.PSYCHPN ---
Subjective Subjective Date of Service: 08/02/20 Reason For Visit: PTSD Interim History: The patient reported that she is more anxious since Valium in now bid and she was more comfortable when she had TID. Her son is helping her regarding application for insurance. Medication Compliance: Yes Side effects from medications: No Attending Groups: Yes Mental Status Exam Mental Status Exam Patient Appearance: Disheveled (on hospital gowns) Patient Orientation: Person, Place, Time and Situation Level of Consciousness: Awake and Appropriate Patient Behavior: Cooperative Mood Description: Calm and Depressed Affect Description: Constricted Patient Cognition Impaired: No Ability to Follow Directions: Good Speech Pattern: Clear Memory Description: Intact Hallucinations: None Delusions: Not Present Thought Process: Goal Oriented Thought Content: positive for Intact (denies active suicidal or homicidal thoughts.) Judgement: Fair Diagnostics Vital Signs (24Hr): Vital Signs - 24 hr 08/01/20 18:00 08/02/20 10:55 Temperature 98.2 F Pulse Rate 81 107 H Respiratory Rate 16 Blood Pressure 112/62 121/65 Pulse Oximetry 91 L 92 Body Mass Index 33.6 Labs Results: 07/28/20 07:00 07/28/20 07:00 Medications Medications Current Medications Generic Name Dose Route Start Last Admin Trade Name Freq PRN Reason Stop Dose Admin Acetaminophen 650 mg 07/27/20 19:38 08/02/20 12:56 Acetaminophen 325 Mg Tablet PO 650 mg Q6H PRN Administration Headache/Pain Mild Scale (1-3) Al Hydroxide/Mg Hydroxide 30 ml 07/27/20 19:38 07/31/20 17:23 Magnesium Hydrox/Alum Hydrox 30 Ml Oral.Susp PO 30 ml Q6H PRN Administration Heartburn/Nausea Albuterol Sulfate 2 puff 07/28/20 16:30 08/02/20 12:19 Albuterol Sulfate 90 Mcg 8 Gm Inhaler INHALE 2 puff Q6H DARIEN Administration Diazepam 5 mg 08/01/20 21:00 08/02/20 09:16 Diazepam 5 Mg Tablet PO 5 mg BID DARIEN Administration Gabapentin 600 mg 07/28/20 21:00 08/02/20 09:16 Gabapentin 600 Mg Tablet PO 600 mg TID DARIEN Administration Hydroxyzine HCl 25 mg 07/27/20 19:38 Hydroxyzine Hcl 25 Mg Tablet PO BEDTIME PRN Anxiety Lidocaine 1 patch 07/28/20 09:00 08/02/20 09:18 Lidocaine 4 % Patch Adh..Patch TRANSDERMA Not Given DAILY DARIEN Protocol Loratadine 10 mg 07/28/20 16:24 Loratadine 10 Mg Tablet PO DAILY PRN allergy Magnesium Hydroxide 30 ml 07/27/20 19:38 07/31/20 10:44 Milk Of Magnesia 30 Ml Oral.Susp PO 30 ml DAILY PRN Administration Constipation Nicotine 14 mg 07/29/20 16:15 08/02/20 09:17 Nicotine 14 Mg Patch.Td24 TRANSDERMA 14 mg DAILY DARIEN Administration Nicotine Polacrilex 2 mg 07/27/20 19:38 07/28/20 10:45 Nicotine Polacrilex 2 Mg Gum BUCCAL 2 mg Q2H PRN Administration Nicotine Cravings Ondansetron HCl 4 mg 07/31/20 23:22 07/31/20 23:39 Ondansetron Odt 4 Mg Tab.Rapdis TRANSLINGU 4 mg Q6H PRN Administration Nausea Sertraline HCl 200 mg 07/29/20 09:00 08/02/20 09:16 Sertraline Hcl 50 Mg Tablet PO 200 mg DAILY DARIEN Administration Tramadol HCl 50 mg 07/28/20 16:13 07/31/20 20:50 Tramadol Hcl 50 Mg Tablet PO 50 mg Q8H PRN Administration Pain, Severe (Pain Scale 7-10) Trazodone HCl 100 mg 07/27/20 22:00 08/01/20 21:53 Trazodone Hcl 100 Mg Tablet PO 100 mg BEDTIME DARIEN Administration Allergies Allergies Allergy/AdvReac Type Severity Reaction Status Date / Time bupropion [From Wellbutrin] Allergy Rash Verified 07/27/20 19:28 Assessment & Plan Assessment & Plan (1) Major depressive disorder: Qualifiers: Major depression recurrence: recurrent Active/Remission status: currently active Major depression episode severity: severe Psychotic features: without psychotic features Qualified Code(s): F33.2 - Major depressive disorder, recurrent severe without psychotic features Status: Acute Code(s): F32.9 - Major depressive disorder, single episode, unspecified Assessment and Plan: Middle age female with a history of MDD and PTSD referred for exacerbation of depressive symptoms in the context of several psychosocial stressors such as lack of access to mental health services, financial constraints and the anniversary of the of her daughter. Plan: 1. Keep Zoloft 200 mg po qam 2. Change Valium 5 mg po qhs and 2.5 mg po bid. 3. Citrate Mg for constipation today. 4. Gather collateral information (2) Post traumatic stress disorder (PTSD): Status: Acute Code(s): F43.10 - Post-traumatic stress disorder, unspecified Greater than 50% of the session was spent on counseling and/or coordination of care Reason for contiued inpatient stay Substantial Risk for: harm to others, rapid decompensation and med/psych decompensation
[2020-08-02] MEDS: Magnesium Citrate 300 ML SOLUTION PO (14:05)
[2020-08-02] MEDS: diazePAM 5 MG TABLET 2.5 MG PO (14:49)
[2020-08-02 17:59] VITALS: BP 118/61; PULSE 89; O2SAT 96
[2020-08-02] MEDS: Magnesium Hydrox/Alum Hydrox 30 ML ORAL.SUSP PO (20:38)
[2020-08-02 22:21] VITALS: BP 119/76; PULSE 91; TEMP 36.7; O2SAT 96
[2020-08-02] MEDS: traZODone HCL 100 MG TABLET PO (22:26)
[2020-08-03] MEDS: Gabapentin 600 MG TABLET PO ×3 (09:29→21:24)
[2020-08-03] MEDS: Sertraline HCL 50 MG TABLET 200 MG PO (09:29)
[2020-08-03] MEDS: diazePAM 5 MG TABLET 2.5 MG PO ×2 (09:29→14:37)
[2020-08-03] MEDS: Nicotine 14 MG PATCH.TD24 TRANSDERMA (09:30)
[2020-08-03 09:36] VITALS: BP 124/71; PULSE 107; RESP 17; O2SAT 95
--- NOTE | 2020-08-03 09:37 | HO.PSYCHPN ---
Subjective Subjective Date of Service: 08/03/20 Reason For Visit: PTSD Interim History: The patient remains anxious in the unit but she was more visible in the unit, less dysphoric. She complaints of depressed mood with lack of energy. Her son will come today and probably we would have a family meeting. Mental Status Exam Mental Status Exam Patient Appearance: Disheveled Patient Orientation: Person, Place and Time Level of Consciousness: Appropriate Patient Behavior: Cooperative Mood Description: Calm and Withdrawn Affect Description: Constricted Patient Cognition Impaired: No Ability to Follow Directions: Good Speech Pattern: Clear Memory Description: Intact Hallucinations: None Delusions: Not Present Thought Process: Linear Thought Content: positive for Poverty of Content Judgement: Fair Diagnostics Vital Signs (24Hr): Vital Signs - 24 hr 08/02/20 10:55 08/02/20 17:59 08/02/20 22:21 Temperature 98.1 F Pulse Rate 107 H 89 91 Respiratory Rate Blood Pressure 121/65 118/61 119/76 Pulse Oximetry 92 96 96 08/03/20 09:36 Temperature Pulse Rate 107 H Respiratory Rate 17 Blood Pressure 124/71 Pulse Oximetry 95 Body Mass Index 33.6 Labs Results: 07/28/20 07:00 07/28/20 07:00 Medications Medications Current Medications Generic Name Dose Route Start Last Admin Trade Name Freq PRN Reason Stop Dose Admin Acetaminophen 650 mg 07/27/20 19:38 08/02/20 12:56 Acetaminophen 325 Mg Tablet PO 650 mg Q6H PRN Administration Headache/Pain Mild Scale (1-3) Al Hydroxide/Mg Hydroxide 30 ml 07/27/20 19:38 08/02/20 20:38 Magnesium Hydrox/Alum Hydrox 30 Ml Oral.Susp PO 30 ml Q6H PRN Administration Heartburn/Nausea Albuterol Sulfate 2 puff 07/28/20 16:30 08/03/20 05:49 Albuterol Sulfate 90 Mcg 8 Gm Inhaler INHALE Not Given Q6H DARIEN Diazepam 5 mg 08/02/20 21:00 08/02/20 22:26 Diazepam 5 Mg Tablet PO 5 mg BEDTIME DARIEN Administration Diazepam 2.5 mg 08/02/20 15:00 08/03/20 09:29 Diazepam 5 Mg Tablet PO 2.5 mg BID@0800,1500 DARIEN Administration Gabapentin 600 mg 07/28/20 21:00 08/03/20 09:29 Gabapentin 600 Mg Tablet PO 600 mg TID DARIEN Administration Hydroxyzine HCl 25 mg 07/27/20 19:38 Hydroxyzine Hcl 25 Mg Tablet PO BEDTIME PRN Anxiety Lidocaine 1 patch 07/28/20 09:00 08/03/20 09:35 Lidocaine 4 % Patch Adh..Patch TRANSDERMA Not Given DAILY DARIEN Protocol Loratadine 10 mg 07/28/20 16:24 Loratadine 10 Mg Tablet PO DAILY PRN allergy Magnesium Hydroxide 30 ml 07/27/20 19:38 07/31/20 10:44 Milk Of Magnesia 30 Ml Oral.Susp PO 30 ml DAILY PRN Administration Constipation Nicotine 14 mg 07/29/20 16:15 08/03/20 09:30 Nicotine 14 Mg Patch.Td24 TRANSDERMA 14 mg DAILY DARIEN Administration Nicotine Polacrilex 2 mg 07/27/20 19:38 07/28/20 10:45 Nicotine Polacrilex 2 Mg Gum BUCCAL 2 mg Q2H PRN Administration Nicotine Cravings Ondansetron HCl 4 mg 07/31/20 23:22 07/31/20 23:39 Ondansetron Odt 4 Mg Tab.Rapdis TRANSLINGU 4 mg Q6H PRN Administration Nausea Sertraline HCl 200 mg 07/29/20 09:00 08/03/20 09:29 Sertraline Hcl 50 Mg Tablet PO 200 mg DAILY DARIEN Administration Trazodone HCl 100 mg 07/27/20 22:00 08/02/20 22:26 Trazodone Hcl 100 Mg Tablet PO 100 mg BEDTIME DARIEN Administration Allergies Allergies Allergy/AdvReac Type Severity Reaction Status Date / Time bupropion [From Wellbutrin] Allergy Rash Verified 07/27/20 19:28 Assessment & Plan Assessment & Plan (1) Major depressive disorder: Qualifiers: Active/Remission status: currently active Major depression episode severity: severe Major depression recurrence: recurrent Psychotic features: without psychotic features Qualified Code(s): F33.2 - Major depressive disorder, recurrent severe without psychotic features Status: Acute Code(s): F32.9 - Major depressive disorder, single episode, unspecified Assessment and Plan: Middle age female with a history of MDD and PTSD referred for exacerbation of depressive symptoms in the context of several psychosocial stressors such as lack of access to mental health services, financial constraints and the anniversary of the of her daughter. Plan: 1. Keep Zoloft 200 mg po qam 2. Change Valium 5 mg po qhs and 2.5 mg po bid. 3. Citrate Mg for constipation today. 4. Gather collateral information (2) Post traumatic stress disorder (PTSD): Status: Acute Code(s): F43.10 - Post-traumatic stress disorder, unspecified Greater than 50% of the session was spent on counseling and/or coordination of care Reason for contiued inpatient stay Substantial Risk for: inability to function, rapid decompensation and med/psych decompensation
[2020-08-03] MEDS: Albuterol Sulfate 90 MCG 8 GM INHALER 2 PUFF INHALE ×3 (10:06→21:24)
[2020-08-03] MEDS: Phenylephrine HCl 0.5 % Nasal 15 ML SPRBTL 2 SPRAY NOSTRIL-B (14:37)
[2020-08-03] MEDS: guaiFENesin LA 600 MG TAB.ER.12H PO ×2 (14:38→21:23)
[2020-08-03] MEDS: Acetaminophen 325 MG TABLET 650 MG PO ×2 (14:42→21:26)
[2020-08-03] MEDS: diazePAM 5 MG TABLET PO (21:23)
[2020-08-03] MEDS: traZODone HCL 100 MG TABLET PO (21:23)
[2020-08-03] MEDS: Magnesium Hydrox/Alum Hydrox 30 ML ORAL.SUSP PO (21:27)
[2020-08-03 21:31] VITALS: BP 130/70; PULSE 99; RESP 18; O2SAT 95
[2020-08-04 06:00] VITALS: BP 126/70; PULSE 89; RESP 16; O2SAT 93
[2020-08-04] MEDS: Acetaminophen 325 MG TABLET 650 MG PO ×2 (08:07→16:19)
[2020-08-04] MEDS: Albuterol Sulfate 90 MCG 8 GM INHALER 2 PUFF INHALE ×4 (08:07→22:03)
[2020-08-04] MEDS: Lidocaine 4 % Patch ADH..PATCH 1 PATCH TRANSDERMA (08:07)
[2020-08-04] MEDS: guaiFENesin LA 600 MG TAB.ER.12H PO ×2 (08:08→22:01)
[2020-08-04] MEDS: diazePAM 5 MG TABLET 2.5 MG PO ×2 (08:09→14:41)
[2020-08-04] MEDS: Nicotine 14 MG PATCH.TD24 TRANSDERMA (08:09)
[2020-08-04] MEDS: Sertraline HCL 50 MG TABLET 200 MG PO (08:09)
[2020-08-04] MEDS: Gabapentin 600 MG TABLET PO ×3 (08:09→22:01)
--- NOTE | 2020-08-04 14:05 | HO.PSYCHPN ---
Subjective Subjective Date of Service: 08/04/20 Reason For Visit: PTSD Interim History: The patient has been social in the unit, still dysphoric and tearful at times but less distressed. Today AM, she was concerned since her Tramadol was not into her list of medications. Mental Status Exam Mental Status Exam Patient Appearance: Appropriate Patient Orientation: Person, Place, Time and Situation Level of Consciousness: Awake Patient Behavior: Appropriate and Cooperative Mood Description: Calm Affect Description: Labile and Sad Patient Cognition Impaired: No Ability to Follow Directions: Good Speech Pattern: Clear Memory Description: Intact Hallucinations: None Delusions: Not Present Thought Process: Linear Thought Content: positive for Perseveration and positive for Poverty of Content Judgement: Fair Diagnostics Vital Signs (24Hr): Vital Signs - 24 hr 08/03/20 21:31 08/04/20 06:00 Pulse Rate 99 89 Respiratory Rate 18 16 Blood Pressure 130/70 126/70 Pulse Oximetry 95 93 Body Mass Index 33.6 Labs Results: 07/28/20 07:00 07/28/20 07:00 Medications Medications Current Medications Generic Name Dose Route Start Last Admin Trade Name Freq PRN Reason Stop Dose Admin Acetaminophen 650 mg 07/27/20 19:38 08/04/20 08:07 Acetaminophen 325 Mg Tablet PO 650 mg Q6H PRN Administration Headache/Pain Mild Scale (1-3) Al Hydroxide/Mg Hydroxide 30 ml 07/27/20 19:38 08/03/20 21:27 Magnesium Hydrox/Alum Hydrox 30 Ml Oral.Susp PO 30 ml Q6H PRN Administration Heartburn/Nausea Albuterol Sulfate 2 puff 07/28/20 16:30 08/04/20 12:44 Albuterol Sulfate 90 Mcg 8 Gm Inhaler INHALE 2 puff Q6H DARIEN Administration Diazepam 5 mg 08/02/20 21:00 08/03/20 21:23 Diazepam 5 Mg Tablet PO 5 mg BEDTIME DARIEN Administration Diazepam 2.5 mg 08/02/20 15:00 08/04/20 08:09 Diazepam 5 Mg Tablet PO 2.5 mg BID@0800,1500 DARIEN Administration Gabapentin 600 mg 07/28/20 21:00 08/04/20 08:09 Gabapentin 600 Mg Tablet PO 600 mg TID DARIEN Administration Guaifenesin 600 mg 08/03/20 12:00 08/04/20 08:08 Guaifenesin La 600 Mg Tab.Er.12h PO 600 mg BID DARIEN Administration Hydroxyzine HCl 25 mg 07/27/20 19:38 Hydroxyzine Hcl 25 Mg Tablet PO BEDTIME PRN Anxiety Lidocaine 1 patch 07/28/20 09:00 08/04/20 08:07 Lidocaine 4 % Patch Adh..Patch TRANSDERMA 1 patch DAILY DARIEN Administration Protocol Loratadine 10 mg 07/28/20 16:24 Loratadine 10 Mg Tablet PO DAILY PRN allergy Magnesium Hydroxide 30 ml 07/27/20 19:38 07/31/20 10:44 Milk Of Magnesia 30 Ml Oral.Susp PO 30 ml DAILY PRN Administration Constipation Nicotine 14 mg 07/29/20 16:15 08/04/20 08:09 Nicotine 14 Mg Patch.Td24 TRANSDERMA 14 mg DAILY DARIEN Administration Nicotine Polacrilex 2 mg 07/27/20 19:38 07/28/20 10:45 Nicotine Polacrilex 2 Mg Gum BUCCAL 2 mg Q2H PRN Administration Nicotine Cravings Ondansetron HCl 4 mg 07/31/20 23:22 07/31/20 23:39 Ondansetron Odt 4 Mg Tab.Rapdis TRANSLINGU 4 mg Q6H PRN Administration Nausea Phenylephrine HCl 2 spray 08/03/20 11:44 08/03/20 14:37 Phenylephrine Hcl 0.5 % Nasal 15 Ml Sprbtl NOSTRIL-B 08/06/20 11:46 2 spray Q4H PRN Administration Nasal Congestion Sertraline HCl 200 mg 07/29/20 09:00 08/04/20 08:09 Sertraline Hcl 50 Mg Tablet PO 200 mg DAILY DARIEN Administration Trazodone HCl 100 mg 07/27/20 22:00 08/03/20 21:23 Trazodone Hcl 100 Mg Tablet PO 100 mg BEDTIME DARIEN Administration Allergies Allergies Allergy/AdvReac Type Severity Reaction Status Date / Time bupropion [From Wellbutrin] Allergy Rash Verified 07/27/20 19:28 Assessment & Plan Assessment & Plan (1) Major depressive disorder: Qualifiers: Active/Remission status: currently active Major depression episode severity: severe Major depression recurrence: recurrent Psychotic features: without psychotic features Qualified Code(s): F33.2 - Major depressive disorder, recurrent severe without psychotic features Status: Acute Code(s): F32.9 - Major depressive disorder, single episode, unspecified Assessment and Plan: Middle age female with a history of MDD and PTSD referred for exacerbation of depressive symptoms in the context of several psychosocial stressors such as lack of access to mental health services, financial constraints and the anniversary of the of her daughter. Plan: 1. Keep Zoloft 200 mg po qam 2. Change Valium 5 mg po qhs and 2.5 mg po bid. 3. Citrate Mg for constipation today. 4. Gather collateral information (2) Post traumatic stress disorder (PTSD): Status: Acute Code(s): F43.10 - Post-traumatic stress disorder, unspecified Greater than 50% of the session was spent on counseling and/or coordination of care Reason for contiued inpatient stay Substantial Risk for: inability to function and rapid decompensation
[2020-08-04] MEDS: traMADoL HCL 50 MG TABLET PO ×2 (14:40→22:41)
[2020-08-04 20:17] VITALS: PULSE 96; RESP 18; TEMP 36.7; O2SAT 96
[2020-08-04] MEDS: Magnesium Hydrox/Alum Hydrox 30 ML ORAL.SUSP PO (20:39)
[2020-08-04] MEDS: diazePAM 5 MG TABLET PO (22:01)
[2020-08-04] MEDS: traZODone HCL 100 MG TABLET PO (22:01)
[2020-08-04] MEDS: hydrOXYzine HCL 25 MG TABLET PO (22:41)
[2020-08-05 06:00] VITALS: BP 113/62; PULSE 96; RESP 16; TEMP 36.7; O2SAT 94
[2020-08-05] MEDS: diazePAM 5 MG TABLET 2.5 MG PO ×2 (09:35→15:25)
[2020-08-05] MEDS: Gabapentin 600 MG TABLET PO ×2 (09:35→15:24)
[2020-08-05] MEDS: Sertraline HCL 50 MG TABLET 200 MG PO (09:36)
[2020-08-05] MEDS: guaiFENesin LA 600 MG TAB.ER.12H PO (09:37)
[2020-08-05] MEDS: Nicotine 14 MG PATCH.TD24 TRANSDERMA (09:38)
[2020-08-05] MEDS: Lidocaine 4 % Patch ADH..PATCH 1 PATCH TRANSDERMA (09:39)
[2020-08-05] MEDS: Albuterol Sulfate 90 MCG 8 GM INHALER 2 PUFF INHALE (10:39)
--- NOTE | 2020-08-05 11:57 | PM.PSYDC ---
DS: Providers Provider Date of Service: 08/05/20 Date of admission: 07/27/20 18:30 Date of discharge: 08/05/20 Primary care physician: Unknown Physician Consults: 07/27/20 20:53 Consult to Hospitalist Routine Consulting Provider: Hospitalist Reason For Exam: Protocol - admission from another hospital Attending physician on discharge: Tony Finley DS: Diagnosis Discharge Diagnosis (1) Major depressive disorder: Status: Acute (2) Post traumatic stress disorder (PTSD): Status: Acute DS: Medications Discharge Medications Home Medications: Home Medications Medication Instructions Recorded Confirmed clonazepam 1 mg PO BID 07/27/20 07/27/20 gabapentin 600 mg PO QID 07/27/20 07/27/20 lidocaine [Lidoderm] 1 patch TOPICAL DAILY 07/27/20 07/27/20 nicotine [Nicoderm] 1 patch TRANSDERMAL DAILY 07/27/20 07/27/20 sertraline 100 mg PO DAILY 07/27/20 07/27/20 trazodone 100 mg PO BEDTIME 07/27/20 07/27/20 Discharge Plan Discharge Patient Disposition: Home, Self-Care Discharge Diagnosis: 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 PTSD Referrals: Angelica (therapist) [Other] - 08/11/20 11:50 am (Telehealth appointment) Renea Palma (psychiatrist) [Other] - 09/21/20 11:00 am (Phone appointment) Physician,Unknown [Primary Care Provider] - 1 Week Discharge Medications: New lidocaine [Lidocaine Pain Relief] 4 % Adhesive Patch,Medicated 1 patch transdermal DAILY 30 Days Qty: 30 RF: 0 loratadine 10 mg Tablet 10 mg PO DAILY PRN (Reason: allergy) 30 Days Qty: 30 RF: 0 diazepam 5 mg Tablet See Rx Instructions .ROUTE .COMPLEX Qty: 60 RF: 0 gabapentin 600 mg Tablet 600 mg PO TID 30 Days Qty: 90 RF: 0 tramadol 50 mg Tablet 50 mg PO Q8H PRN (Reason: severe pain) 30 Days Qty: 90 RF: 0 lorazepam 0.5 mg Tablet 0.5 mg PO ONCE PRN (Reason: anxiety) 15 Days Qty: 15 RF: 0 trazodone 100 mg Tablet 100 mg PO BEDTIME 30 Days Qty: 30 RF: 0 Continued lidocaine [Lidoderm] 5 % Adhesive Patch,Medicated 1 patch topical DAILY RF: 0 Changed sertraline 100 mg Tablet 200 mg PO DAILY 30 Days Qty: 60 RF: 0 Discontinued trazodone 100 mg Tablet 100 mg PO BEDTIME RF: 0 nicotine [Nicoderm] 21 mg/24 hr Patch 24 Hour 1 patch TRANSDERMAL DAILY RF: 0 gabapentin 600 mg Tablet 600 mg PO QID RF: 0 clonazepam 1 mg Tablet 1 mg PO BID RF: 0 Discharge Orders: Discharge Order (Routine); Ordered 08/05/20 Ordered By: Tony Finley Diet: regular diet Activity on Discharge: As tolerated Stand Alone Forms: Patient Portal Discharge page Care Plan Goals: Continue with Care Plan Goals as an outpatient Health Concerns: Continue treatment of Fibromyalgia with PCP Plan of Treatment: Continue medication management and psychotherapy Assessment: Adult female with MDD and PTSD, admitted for exacerbation of depression and PTSD in the context of poor access to mental health and financial constraints, discharged with less anxiety and dysphoria. Mental Status Exam Mental Status Exam Patient Appearance: Well Grooomed Patient Orientation: Person, Place, Time and Situation Level of Consciousness: Awake Patient Behavior: Appropriate and Cooperative Mood Description: Calm and Depressed Affect Description: Constricted Patient Cognition Impaired: No Ability to Follow Directions: Good Speech Pattern: Clear Memory Description: Intact Hallucinations: None Delusions: Not Present Thought Process: Linear Thought Content: positive for Circumstantial Judgement: Fair DS: Summary Hospital Course Hospital Course: The patient was initially admitted due to severe depression with depressed mood, anhedonia, lack of energy, increased anxiety and PTSD symptoms in correlation with the loss of her daughter in a violent manner. She had several psychosocial stressors such as financial constraints, loss of access to mental health and social isolation. She was assessed by crisiis due to her inability to function in the community. During the admission, we reivewed her medications and she agreed to increase Zoloft up to 200 mg po daily and change her benzodiazepines to Valium. The patient had Klonopin and Valium but we decided to stay on Valium only since she also has muscle spams from Fibromyalgia. She improved, she was able to participate on groups and her level of energy improved. We had several family meetings and since she was better, discharge planning was discussed. Time spent discussing smoking cessation with patient: 3 to 10 minutes Status at Discharge Functional status at discharge: independent ambulation Overall status at discharge: patient is back to baseline Time Spent with Patient Time attestation: Total time spent providing and/or coordinating discharge services: Time spent: Less than 30 minutes
== END 2020-08-05 18:15 | disposition home or self-care (01) | DRG 885 ==
PROVIDERS: Psychiatry & Neurology Psychiatry; Admitting Provider Psychiatry & Neurology Psychiatry; Visit Provider Psychiatry & Neurology Psychiatry
DX: F33.2 Major depressive disorder, recurrent severe without psychotic features (principal); F43.10 Post-traumatic stress disorder, unspecified; F17.290 Nicotine dependence, other tobacco product, uncomplicated; Z71.6 Tobacco abuse counseling; Z79.891 Long term (current) use of opiate analgesic; Z79.899 Other long term (current) drug therapy
CPT/HCPCS: 36415; 80053; 80061; 83036; 85025